=== PATIENT | male | born 1965 ===

== ENCOUNTER → 2016-04-15 | Outpatient (REF) | payer OTHER ==
[2016-04-15 13:37] LABS: URIC ACID 5.2 MG/DL (3.5-7.2)
[2016-04-15 13:56] LABS: CORTISOL AM 17.2 UG/DL (4.3-22.4)
[2016-04-16 13:33] LABS: PERCENT SATURATION 28.9 % (19.7-37.4)
== END ==
LOC: M LAB REF 12:20
DX: M1A.00X1 Idiopathic chronic gout, unspecified site, with tophus (tophi) (principal); M19.90 Unspecified osteoarthritis, unspecified site; I73.00 Raynaud's syndrome without gangrene; D44.3 Neoplasm of uncertain behavior of pituitary gland

== ENCOUNTER → 2017-04-15 | Outpatient (REF) | payer OTHER ==
[2017-04-15 16:35] LABS: RHEUMATOID FACTOR QUANT 23.2 IU/ML (0-15.0)
[2017-04-16 15:02] LABS: C REACTIVE PROTEIN QUANTITATIV < 0.30 MG/DL (0.00-0.30)
[2017-04-18 00:06] LABS: CYCLIC CITRULLINATED PEPTIDE 12 units (0-19)
== END ==
LOC: M LAB REF 15:45
DX: M79.642 Pain in left hand (principal); M79.641 Pain in right hand; M19.90 Unspecified osteoarthritis, unspecified site